=== PATIENT | male | born 1945 | race Caucasian/White ===

== ENCOUNTER 2017-11-13 14:01 | Emergency (ER) | payer MEDICARE, MEDICAID ==
[~2017-11-13] VITALS: Ht 172.7 cm; Wt 91.0 kg
[~2017-11-13 14:01] MED LIST: AMLO2.5T2 PO; ASPI-864 PO; SIMV20TA6 PO; TAMS0.4C31 PO
[2017-11-13 20:00] VITALS: BP 144/83
== END 2017-11-13 20:56 | disposition home or self-care (01) ==
LOC: ER 15:18
DX: R05 Cough (principal); I10 Essential (primary) hypertension; E78.00 Pure hypercholesterolemia, unspecified; Z98.890 Other specified postprocedural states; Z79.82 Long term (current) use of aspirin; Z85.828 Personal history of other malignant neoplasm of skin
CPT/HCPCS: 71045; 99284

== ENCOUNTER 2020-10-06 10:16 | Inpatient (IN) | payer MEDICARE, MEDICAID ==
[~2020-10-06] VITALS: Ht 165.1 cm; Wt 63.5 kg
[~2020-10-06 10:16] MED LIST changes: +SIMV-43 PO; -SIMV20TA6 PO
[2020-10-06] MEDS ORDERED: ALBUTEROL 6.7GM HFA INHALER ORI ONE (10:45)
[2020-10-06 11:09] LABS: BASOPHILS % 0.3 % (0.0-2.0); EOSINOPHILS % 0.2 % (0.0-5.0); HEMATOCRIT. 40.5 % (42.0-52.0); HEMOGLOBIN. 14.3 g/dL (14.0-18.0); LYMPHOCYTES % 12.5 % (20.0-50.0); MEAN CORPUSCULAR HEMOGLOBIN 30.7 pg (28.0-32.0); MEAN CORPUSCULAR VOLUME 87.2 fL (80.0-94.0); MEAN PLATELET VOLUME 8.3 fl (7.4-10.4); MONOCYTES % 3.9 % (2.0-8.0); NEUTROPHILS % 83.1 % (40.0-76.0); PLATELET 230 x1000/uL (130-400); RED BLOOD CELL COUNT 4.65 mill/uL (4.7-6.1); RED CELL DISTRIBUTION WIDTH 13.5 % (11.6-14.6)
[2020-10-06 11:14] LABS: CHLORIDE 105 mEq/L (98-107)
[2020-10-06] MEDS ORDERED: ASPIRIN 81MG TABLET PO ONE (14:15)
[2020-10-06] MEDS ORDERED: GUAIFENESIN 200MG/10ML SUGAR FREE UDC PO PRN (19:15)
[2020-10-06] MEDS ORDERED: ONDANSETRON HCL 4MG/2ML INJ IV PRN (19:15)
[2020-10-06] MEDS ORDERED: HYDROCODONE/ACETAMINOPHEN 5/325MG TABLET PO PRN (19:15)
[2020-10-06] MEDS ORDERED: MAGNESIUM/ALUMINUM HYDROXIDE/SIMETHICONE 30ML UDC PO PRN (19:15)
[2020-10-06] MEDS ORDERED: CLONIDINE 0.1MG TABLET PO PRN (19:15)
[2020-10-06] MEDS: ENOXAPARIN 40MG/0.4ML SYR SUBCUT SCH (21:06)
[2020-10-07] MEDS: OMEPRAZOLE 20MG CAPSULE EXTENDED RELEASE PO SCH (06:22)
[2020-10-07 09:07] LABS: CHLORIDE 105 mEq/L (98-107)
[2020-10-07 09:14] LABS: BASOPHILS % 0.3 % (0.0-2.0); HEMATOCRIT. 38.7 % (42.0-52.0); HEMOGLOBIN. 13.7 g/dL (14.0-18.0); LYMPHOCYTES % 9.7 % (20.0-50.0); MEAN CORPUSCULAR HEMOGLOBIN 30.5 pg (28.0-32.0); MEAN CORPUSCULAR VOLUME 86.1 fL (80.0-94.0); MEAN PLATELET VOLUME 8.6 fl (7.4-10.4); MONOCYTES % 4.3 % (2.0-8.0); NEUTROPHILS % 85.7 % (40.0-76.0); PLATELET 237 x1000/uL (130-400); RED BLOOD CELL COUNT 4.49 mill/uL (4.7-6.1); RED CELL DISTRIBUTION WIDTH 13.7 % (11.6-14.6)
[2020-10-07 09:17] LABS: LDL CHOLESTEROL 113 mg/dL (5-100)
[2020-10-07 09:18] LABS: PHOSPHORUS 2.7 mg/dL (2.5-4.9)
[2020-10-07 09:19] LABS: HDL CHOLESTEROL 28 mg/dL (40-59)
[2020-10-07 11:30] VITALS: BP 137/76
[2020-10-07 12:00] VITALS: BP 142/76
[2020-10-07] MEDS ORDERED: POTASSIUM CHLORIDE 20MEQ TABLET SR PO NR (12:00)
[2020-10-07 16:00] VITALS: BP 165/87
[2020-10-07] MEDS ORDERED: CEFTRIAXONE 1 G PREMIX 50 ML IV SCH (17:45)
[2020-10-07] MEDS ORDERED: DEXAMETHASONE 6MG TABLET PO NR (17:45)
[2020-10-07] MEDS: ACETAMINOPHEN 325MG TABLET PO PRN (18:17)
[2020-10-07 20:00] VITALS: BP 121/74
[2020-10-07] MEDS: CEFTRIAXONE 1,000 MG in DEXTROSE 5% WATER 50 ML IV SCH (22:32)
[2020-10-07] MEDS: ENOXAPARIN 40MG/0.4ML SYR SUBCUT SCH (22:33)
[2020-10-07] MEDS: TAMSULOSIN HCL 0.4MG SR CAPSULE PO SCH (22:34)
[2020-10-07] MEDS: ATORVASTATIN CALCIUM 20MG TABLET PO SCH (22:34)
[2020-10-08] VITALS: BP 113/57
[2020-10-08 04:00] VITALS: BP 118/64
[2020-10-08] MEDS: OMEPRAZOLE 20MG CAPSULE EXTENDED RELEASE PO SCH (06:42)
[2020-10-08 07:42] LABS: BASOPHILS % 0.1 % (0.0-2.0); HEMATOCRIT. 37.8 % (42.0-52.0); LYMPHOCYTES % 13.7 % (20.0-50.0); MEAN CORPUSCULAR HEMOGLOBIN 29.9 pg (28.0-32.0); MEAN PLATELET VOLUME 8.5 fl (7.4-10.4); MONOCYTES % 2.9 % (2.0-8.0); NEUTROPHILS % 83.3 % (40.0-76.0); PLATELET 264 x1000/uL (130-400); RED BLOOD CELL COUNT 4.35 mill/uL (4.7-6.1); RED CELL DISTRIBUTION WIDTH 13.8 % (11.6-14.6)
[2020-10-08 07:43] LABS: CHLORIDE 104 mEq/L (98-107)
[2020-10-08 08:00] VITALS: BP 100/64
[2020-10-08] MEDS: ASPIRIN 81MG EC TABLET PO SCH (08:24)
[2020-10-08] MEDS: AZITHROMYCIN 500 MG TABLET PO SCH (08:24)
[2020-10-08] MEDS ORDERED: AMLODIPINE 2.5MG TABLET PO SCH (09:00)
[2020-10-08 11:49] VITALS: BP 114/60
[2020-10-08 15:44] VITALS: BP 116/60
[2020-10-08] MEDS: CEFTRIAXONE 1,000 MG in DEXTROSE 5% WATER 50 ML IV SCH (17:02)
[2020-10-08 20:00] VITALS: BP 157/74
[2020-10-08] MEDS: ATORVASTATIN CALCIUM 20MG TABLET PO SCH (20:35)
[2020-10-08] MEDS: ENOXAPARIN 40MG/0.4ML SYR SUBCUT SCH (20:35)
[2020-10-08] MEDS: TAMSULOSIN HCL 0.4MG SR CAPSULE PO SCH (20:36)
[2020-10-09] VITALS: BP 135/73
[2020-10-09 04:00] VITALS: BP 120/57
[2020-10-09 05:36] LABS: CHLORIDE 106 mEq/L (98-107)
[2020-10-09] MEDS: FAMOTIDINE 20MG TABLET PO SCH ×2 (06:10→18:23)
[2020-10-09 06:58] LABS: BASOPHILS % 0.6 % (0.0-2.0); EOSINOPHILS % 0.2 % (0.0-5.0); HEMATOCRIT. 39.9 % (42.0-52.0); HEMOGLOBIN. 13.6 g/dL (14.0-18.0); MEAN CORPUSCULAR HEMOGLOBIN 29.8 pg (28.0-32.0); MEAN CORPUSCULAR VOLUME 87.4 fL (80.0-94.0); MEAN PLATELET VOLUME 9.1 fl (7.4-10.4); NEUTROPHILS % 80.2 % (40.0-76.0); PLATELET 294 x1000/uL (130-400); RED BLOOD CELL COUNT 4.57 mill/uL (4.7-6.1); RED CELL DISTRIBUTION WIDTH 13.9 % (11.6-14.6)
[2020-10-09 08:00] VITALS: BP 109/63
[2020-10-09] MEDS: ASPIRIN 81MG EC TABLET PO SCH (08:51)
[2020-10-09] MEDS: AZITHROMYCIN 500 MG TABLET PO SCH (08:51)
[2020-10-09 12:00] VITALS: BP 120/58
[2020-10-09 16:00] VITALS: BP 126/69
[2020-10-09] MEDS: CEFTRIAXONE 1,000 MG in DEXTROSE 5% WATER 50 ML IV SCH (18:23)
[2020-10-09 20:00] VITALS: BP 143/64
[2020-10-09] MEDS: ATORVASTATIN CALCIUM 20MG TABLET PO SCH (21:34)
[2020-10-09] MEDS: TAMSULOSIN HCL 0.4MG SR CAPSULE PO SCH (21:34)
[2020-10-09] MEDS: ENOXAPARIN 40MG/0.4ML SYR SUBCUT SCH (21:34)
[2020-10-10] VITALS: BP 122/65
[2020-10-10] MEDS: ACETAMINOPHEN 325MG TABLET PO PRN ×2 (01:17→17:15)
[2020-10-10 04:00] VITALS: BP 103/56
[2020-10-10] MEDS: FAMOTIDINE 20MG TABLET PO SCH ×2 (05:18→17:15)
[2020-10-10 07:34] LABS: BASOPHILS % 0.7 % (0.0-2.0); EOSINOPHILS % 1.8 % (0.0-5.0); HEMATOCRIT. 39.9 % (42.0-52.0); HEMOGLOBIN. 13.3 g/dL (14.0-18.0); LYMPHOCYTES % 20.9 % (20.0-50.0); MEAN CORPUSCULAR HEMOGLOBIN 29.3 pg (28.0-32.0); MEAN CORPUSCULAR VOLUME 87.5 fL (80.0-94.0); MEAN PLATELET VOLUME 9.2 fl (7.4-10.4); MONOCYTES % 6.6 % (2.0-8.0); PLATELET 311 x1000/uL (130-400); RED BLOOD CELL COUNT 4.55 mill/uL (4.7-6.1); RED CELL DISTRIBUTION WIDTH 13.6 % (11.6-14.6)
[2020-10-10 07:39] LABS: CHLORIDE 104 mEq/L (98-107)
[2020-10-10 08:00] VITALS: BP 115/50
[2020-10-10] MEDS: AZITHROMYCIN 500 MG TABLET PO SCH (09:22)
[2020-10-10] MEDS: ASPIRIN 81MG EC TABLET PO SCH (10:19)
[2020-10-10 12:00] VITALS: BP 98/51
[2020-10-10 16:00] VITALS: BP 112/55
[2020-10-10] MEDS: CEFTRIAXONE 1,000 MG in DEXTROSE 5% WATER 50 ML IV SCH (17:16)
[2020-10-10 20:30] VITALS: BP 140/63
[2020-10-10] MEDS: ATORVASTATIN CALCIUM 20MG TABLET PO SCH (21:32)
[2020-10-10] MEDS: TAMSULOSIN HCL 0.4MG SR CAPSULE PO SCH (21:32)
[2020-10-10] MEDS: ENOXAPARIN 40MG/0.4ML SYR SUBCUT SCH (21:32)
[2020-10-11] VITALS: BP 130/59
[2020-10-11 04:00] VITALS: BP 105/58
[2020-10-11] MEDS: FAMOTIDINE 20MG TABLET PO SCH ×2 (05:41→17:25)
[2020-10-11 08:00] VITALS: BP 110/63
[2020-10-11 08:58] LABS: BASOPHILS % 1.1 % (0.0-2.0); EOSINOPHILS % 1.6 % (0.0-5.0); HEMATOCRIT. 39.4 % (42.0-52.0); HEMOGLOBIN. 13.4 g/dL (14.0-18.0); LYMPHOCYTES % 22.2 % (20.0-50.0); MEAN CORPUSCULAR HEMOGLOBIN 29.7 pg (28.0-32.0); MEAN CORPUSCULAR VOLUME 87.4 fL (80.0-94.0); MEAN PLATELET VOLUME 8.9 fl (7.4-10.4); MONOCYTES % 5.9 % (2.0-8.0); NEUTROPHILS % 69.2 % (40.0-76.0); PLATELET 315 x1000/uL (130-400); RED CELL DISTRIBUTION WIDTH 13.5 % (11.6-14.6)
[2020-10-11 09:08] LABS: CHLORIDE 106 mEq/L (98-107)
[2020-10-11] MEDS: ASPIRIN 81MG EC TABLET PO SCH (09:54)
[2020-10-11] MEDS: CHOLECALCIFEROL (D3) 1000 UNIT TABLET PO SCH (09:55)
[2020-10-11] MEDS: AZITHROMYCIN 500 MG TABLET PO SCH (09:55)
[2020-10-11 12:00] VITALS: BP 142/66
[2020-10-11 20:00] VITALS: BP 124/61
[2020-10-11] MEDS: TAMSULOSIN HCL 0.4MG SR CAPSULE PO SCH (21:05)
[2020-10-11] MEDS: ATORVASTATIN CALCIUM 20MG TABLET PO SCH (21:05)
[2020-10-11] MEDS: ENOXAPARIN 40MG/0.4ML SYR SUBCUT SCH (21:06)
[2020-10-12] VITALS: BP 131/59
[2020-10-12 04:10] VITALS: BP 105/55
[2020-10-12] MEDS: FAMOTIDINE 20MG TABLET PO SCH (05:51)
[2020-10-12 06:26] LABS: BASOPHILS % 0.9 % (0.0-2.0); EOSINOPHILS % 2.5 % (0.0-5.0); HEMATOCRIT. 39.4 % (42.0-52.0); HEMOGLOBIN. 13.4 g/dL (14.0-18.0); LYMPHOCYTES % 25.1 % (20.0-50.0); MEAN CORPUSCULAR HEMOGLOBIN 29.9 pg (28.0-32.0); MEAN CORPUSCULAR VOLUME 87.7 fL (80.0-94.0); MEAN PLATELET VOLUME 8.7 fl (7.4-10.4); MONOCYTES % 5.7 % (2.0-8.0); NEUTROPHILS % 65.8 % (40.0-76.0); PLATELET 338 x1000/uL (130-400); RED BLOOD CELL COUNT 4.49 mill/uL (4.7-6.1); RED CELL DISTRIBUTION WIDTH 13.8 % (11.6-14.6)
[2020-10-12 06:30] LABS: CHLORIDE 104 mEq/L (98-107)
[2020-10-12 08:00] VITALS: BP 98/50
[2020-10-12] MEDS: CHOLECALCIFEROL (D3) 1000 UNIT TABLET PO SCH (08:47)
[2020-10-12] MEDS: ASPIRIN 81MG EC TABLET PO SCH (08:47)
[2020-10-12 11:50] VITALS: BP 101/51
[2020-10-12] MEDS ORDERED: PANT40TA4 MT (14:15)
[2020-10-12] MEDS ORDERED: DEXA6TAB MT (14:15)
[2020-10-12 14:38] VITALS: BP 101/51
== END 2020-10-12 15:50 | disposition home or self-care (01) | DRG 871 ==
LOC: ER 10:16 → MICUSO 14:10 → 8WST 10-07 10:53
PROVIDERS: ADMIT Internal Medicine; ATTEND Internal Medicine
DX: A41.89 Other specified sepsis (principal); U07.1 COVID-19; J96.01 Acute respiratory failure with hypoxia; I50.43 Acute on chronic combined systolic (congestive) and diastolic (congestive) heart failure; J12.82 Pneumonia due to coronavirus disease 2019; E87.2 Acidosis; R65.20 Severe sepsis without septic shock; I11.0 Hypertensive heart disease with heart failure; E87.6 Hypokalemia; E78.5 Hyperlipidemia, unspecified; R00.1 Bradycardia, unspecified; N40.0 Benign prostatic hyperplasia without lower urinary tract symptoms; Z79.899 Other long term (current) drug therapy; Z79.82 Long term (current) use of aspirin
CPT/HCPCS: 36415; 71045; 80048; 80053; 80061; 80076; 82728; 83605; 83615; 83735; 83880; 84100; 84145; 84443; 84484; 85025; 85379; 86140; 93005; 93970; 94640; 99285; J0696; J1650; J7040; J7060; U0003

== ENCOUNTER 2022-06-27 08:42 | Inpatient (IN) | payer BC, MEDICAID ==
[~2022-06-27] VITALS: Ht 170.2 cm; Wt 90.3 kg
[~2022-06-27 08:42] MED LIST changes: +DEXA6TAB MT; +PANT40TA51 MT
[2022-06-27 13:54] LABS: BASOPHILS % 1.1 % (0.0-2.0); EOSINOPHILS % 2.8 % (0.0-5.0); HEMATOCRIT. 40.5 % (42.0-52.0); HEMOGLOBIN. 13.8 g/dL (14.0-18.0); MEAN CORPUSCULAR HEMOGLOBIN 30.4 pg (28.0-32.0); MEAN CORPUSCULAR VOLUME 89.1 fL (80.0-94.0); MEAN PLATELET VOLUME 8.7 fl (7.4-10.4); MONOCYTES % 4.8 % (2.0-8.0); NEUTROPHILS % 34.3 % (40.0-76.0); PLATELET 171 x1000/uL (130-400); RED BLOOD CELL COUNT 4.54 mill/uL (4.7-6.1); RED CELL DISTRIBUTION WIDTH 14.1 % (11.6-14.6)
[2022-06-27 14:01] LABS: CHLORIDE 103 mEq/L (98-107)
[2022-06-27 14:02] LABS: CLARITY URINE CLEAR (CLEAR); COLOR URINE YELLOW (YELLOW); KETONES URINE NEGATIVE (NEGATIVE); LEUKOCYTE ESTERASE URINE NEGATIVE (NEGATIVE); NITRITE URINE NEGATIVE (NEGATIVE); OCCULT BLOOD URINE NEGATIVE (NEGATIVE); PH URINE 5.5 (4.5-8.0); PROTEIN URINE NEGATIVE (NEGATIVE); SPECIFIC GRAVITY URINE 1.011 (1.005-1.030); UROBILINOGEN URINE 0.2 E.U./dL (0.2-1.0)
[2022-06-27] MEDS ORDERED: IOHEXOL-350 100 ML BOTTLE ONE (15:08)
[2022-06-27] MEDS ORDERED: SODIUM CHLORIDE 0.9% 500 ML IV ONE (16:30)
[2022-06-27 18:45] VITALS: BP 161/78
[2022-06-27 20:00] VITALS: BP 148/65
[2022-06-27] MEDS ORDERED: ACETAMINOPHEN 325MG TABLET PO PRN (21:15)
[2022-06-27] MEDS: AMLODIPINE 2.5MG TABLET PO SCH (22:11)
[2022-06-27 22:40] VITALS: BP 148/65
[2022-06-28] VITALS: BP 141/66
[2022-06-28 04:00] VITALS: BP 142/77
[2022-06-28] MEDS ORDERED: LOSA50TA41 PO (04:28)
[2022-06-28] MEDS ORDERED: LOSA50TA41 MT (04:28)
[2022-06-28 06:29] LABS: HEMATOCRIT 39.4 % (42.0-52.0); HEMOGLOBIN 13.7 g/dL (14.0-18.0); MEAN CORPUSCULAR HEMOGLOBIN 30.8 pg (28.0-32.0); MEAN CORPUSCULAR VOLUME 88.5 fL (80.0-94.0); PLATELET 167 x1000/uL (130-400); RED BLOOD CELL COUNT 4.45 mill/uL (4.7-6.1); RED CELL DISTRIBUTION WIDTH 13.8 % (11.6-14.6)
[2022-06-28 06:35] LABS: CHLORIDE 107 mEq/L (98-107)
[2022-06-28 06:45] LABS: HDL CHOLESTEROL 30 mg/dL (40-59); LDL CHOLESTEROL 83 mg/dL (5-100)
[2022-06-28 08:00] VITALS: BP 126/57
[2022-06-28] MEDS: AMLODIPINE 2.5MG TABLET PO SCH (09:00)
[2022-06-28] MEDS: LOSARTAN POTASSIUM 50 MG TABLET PO SCH (09:00)
[2022-06-28] MEDS: TAMSULOSIN HCL 0.4MG SR CAPSULE PO SCH (09:47)
[2022-06-28] MEDS: ENOXAPARIN 40MG/0.4ML SYR SUBCUT SCH (09:48)
[2022-06-28] MEDS: ASPIRIN 81MG TABLET PO SCH (09:48)
[2022-06-28 12:00] VITALS: BP 121/63
[2022-06-28 16:00] VITALS: BP 121/63
[2022-06-28] MEDS ORDERED: GADOTERATE MEGLUMINE 5 MMOL/10 ML VIAL IV ONE (17:27)
[2022-06-28 20:00] VITALS: BP 126/59
[2022-06-28] MEDS ORDERED: ATORVASTATIN CALCIUM 20MG TABLET PO SCH (21:00)
[2022-06-28] MEDS: GUAIFENESIN-DM 200MG-20MG/10ML UDC PO PRN (21:00)
[2022-06-29] VITALS: BP 138/71
[2022-06-29 04:00] VITALS: BP 120/64
[2022-06-29 08:00] VITALS: BP 120/53
[2022-06-29] MEDS: TAMSULOSIN HCL 0.4MG SR CAPSULE PO SCH (08:57)
[2022-06-29] MEDS: AMLODIPINE 2.5MG TABLET PO SCH (08:57)
[2022-06-29] MEDS: ASPIRIN 81MG TABLET PO SCH (08:57)
[2022-06-29] MEDS: GUAIFENESIN-DM 200MG-20MG/10ML UDC PO PRN (08:58)
[2022-06-29] MEDS: LOSARTAN POTASSIUM 50 MG TABLET PO SCH (08:58)
[2022-06-29] MEDS: ENOXAPARIN 40MG/0.4ML SYR SUBCUT SCH (08:58)
[2022-06-29 12:00] VITALS: BP 149/69
[2022-06-29 16:00] VITALS: BP 128/67
[2022-06-29 17:45] VITALS: BP 128/67
== END 2022-06-29 20:13 | disposition home or self-care (01) | DRG 74 ==
LOC: ER 10:08 → 7WST 16:19 → EDBEDREQTM 16:22 → EDBEDREQ 16:22
PROVIDERS: ADMIT Internal Medicine; ATTEND Internal Medicine
DX: G90.8 Other disorders of autonomic nervous system (principal); N40.0 Benign prostatic hyperplasia without lower urinary tract symptoms; D35.2 Benign neoplasm of pituitary gland; I10 Essential (primary) hypertension; E66.9 Obesity, unspecified; R73.03 Prediabetes; R00.1 Bradycardia, unspecified; R55 Syncope and collapse; R79.89 Other specified abnormal findings of blood chemistry; E78.5 Hyperlipidemia, unspecified; E23.7 Disorder of pituitary gland, unspecified; Z68.31 Body mass index [BMI] 31.0-31.9, adult
CPT/HCPCS: 36415; 70496; 70553; 71045; 73030; 80048; 80053; 80061; 81003; 83036; 83880; 84484; 85025; 85027; 93005; 93306; 93880; 99285; A9577; J1650; J7040; Q9967